=== PATIENT | male | born 1950 | race African-American/Black ===

== ENCOUNTER 2020-07-26 14:38 | Inpatient (IN) | payer MEDICARE, MEDICAID ==
[~2020-07-26 14:38] MED LIST: Acetaminophen 325 MG TAB PO PRN; Ondansetron ODT 4 MG TAB SL PRN; Ondansetron PF 4 MG/2 ML Vial IVP PRN
[2020-07-26 17:02] VITALS: BMI 25.7
[2020-07-26] MEDS ORDERED: hydrALAZINE 20 MG/ML VIAL SLOW IVP PRN (18:18)
[2020-07-26] MEDS ORDERED: Albuterol Sulfate 1.25 MG/3 ML NEB NEB PRN (18:51)
[2020-07-26] MEDS ORDERED: Albuterol 200 PUFF (6.7GM INHALER) INH PRN (19:19)
[2020-07-26 19:27] LABS: Troponin I 0.217 ng/mL (< 0.028)
--- NOTE | 2020-07-26 20:11 | HP ---
CHIEF COMPLAINT: Chest pain. HISTORY OF PRESENT ILLNESS: The patient is a 69-year-old male with a past medical history of substance abuse, who comes into the ER today with complaints of chest pain. He denies any fevers or chills. He denies any shortness of breath. The patient was very uncooperative, stated that he wanted to go smoking. When I told him that I needed to get a history from him, he stated that he will not give me any history and he does not have any chest pain currently. The patient states that he does not take any medications either. The patient was very uncooperative, was not able to get any history from this patient. REVIEW OF SYSTEMS: All negative except for the ones mentioned in the HPI. PAST MEDICAL HISTORY: History of hypertension, he has a history for pneumonia and hypertension, tobacco abuse. PAST SURGICAL HISTORY: He has had broken ribs approximately 20 years ago. ALLERGIES: HE HAS NO KNOWN DRUG ALLERGIES. MEDICATIONS: He takes none. FAMILY HISTORY: Per previous chart reviews, diabetes type 2. SOCIAL HISTORY: He continues to smoke a pack a day. Drinks alcohol socially, however, unable to tell me. He uses crack cocaine on the weekends. His drug test, however, was negative. REVIEW OF SYSTEMS: As I mentioned, all negative except for the ones mentioned above in the HPI. PHYSICAL EXAMINATION: VITAL SIGNS: As of the following; temperature of 98.1, heart rate 51, respiratory rate 16, 98% on room air, blood pressure 150/116. GENERAL: He is awake, alert, sitting up in bed, eating dinner. Does not appear in distress. CARDIOVASCULAR: S1, S2 present. No murmurs, rubs, or gallops. LUNGS: Clear to auscultation. No rhonchi or wheezes noted. ABDOMEN: Soft and nontender. Bowel sounds are present x2. EXTREMITIES: No edema. Pedal pulses are present x2. NEUROVASCULAR: No focal deficits noted. SKIN: No cuts, lesions, or bruises noted. LABORATORY RESULTS: WBCs of 9.0, hemoglobin 15.3, hematocrit of 44.8, his platelets are 253. Chemistries; sodium 146, potassium 4.0, BUN of 26, creatinine 1.56. His AST is 46. His troponin x1 was 0.211, second one was 0.200. BNP was 336. He did have a CTA in ER, which indicated emphysema. No abnormalities. No PE. Centrilobar emphysema. He also had diffuse dilation of the pancreatic duct. ASSESSMENT AND PLAN: The patient is a 69-year-old male, who presents to the hospital with complaints of chest pain. However, currently he is chest pain free. 1. Chest pain. The patient again is unable to really tell me if it is sharp or it is pressure-like or crushing like. He is very very noncooperative. He is very angry. He states that he wants to go smoke and I told him that he cannot go out and smoke. We will trend his troponins. We will start aspirin and statin since he is not on any medications. We will get a stress test in the morning. His EKG does indicate some T-wave abnormalities in his anterior leads. He does have significant risk factors. 2. Acute kidney injury. We will recheck his creatinine in the morning. Hold all nephrotoxins. 3. Mildly elevated hypernatremia. We will continue to monitor. 4. Deep venous thrombosis prophylaxis. We will put patient on SCDs. 5. Smoking session. I did recommend a patch, the patient refused. He states he wants to go down and smoke. We will also check a lipid panel in the morning. Job ID: [id number]
[2020-07-26] MEDS: Atorvastatin Calcium 40 MG TAB PO SCH (20:34)
[2020-07-26 22:53] LABS: Troponin I 0.195 ng/mL (< 0.028)
[2020-07-27 05:25] LABS: #Basophils 0.1 thou/uL (0.0-0.2); #Eosinphils 0.4 thou/uL (0.0-0.7); #Lymphocytes 2.7 thou/uL (1.20-3.40); #Monocytes 0.5 thou/uL (0.11-0.59); #Neutrophils 2.5 thou/uL (1.40-6.50); %Basophils 1.4 % (0.0-1.0); %Eosinophils 6.4 % (0.0-10.0); %Lymphocytes 44.5 % (21.0-51.0); %Monocytes 7.9 % (0.0-10.0); %Neutrophils 39.7 % (42.0-75.0); Hemoglobin 13.2 g/dL (14.0-18.0); Mean Corpuscular Hemoglobin 30.4 pg (27.0-31.0); Mean Corpuscular Volume 86.9 fL (78.0-98.0); Mean Platelet Volume 7.1 fL (7.4-10.4); Platelet Count 228 thou/uL (130-400); RBC Distribution Width 12.5 % (11.5-14.5); Red Blood Cell (RBC) Count 4.34 mill/uL (4.70-6.10); White Blood Cell (WBC) Count 6.2 thou/uL (4.8-10.8)
[2020-07-27 05:41] LABS: Anion Gap 11 mmol/L (10-20); BUN (Urea Nitrogen) 22 mg/dL (8.4-25.7); Calc. Creatinine Clearance 47 mL/min (70-130); Calcium 8.2 mg/dL (7.8-10.44); Carbon Dioxide 27 mmol/L (23-31); Cardiac Risk 2.9 (Less than 4.5); Chloride 107 mmol/L (98-107); Cholesterol 123 mg/dl (< 200 Desired); Glucose 81 mg/dL (80-115); HDL Cholesterol 42 mg/dL (>60 Neg Risk); LDL Cholesterol, Calculated 68 mg/dL; Potassium 3.6 mmol/L (3.5-5.1); Sodium 141 mmol/L (136-145); Triglycerides 63 mg/dL (Less than 150)
[2020-07-27 05:46] LABS: Troponin I 0.181 ng/mL (< 0.028)
--- NOTE | 2020-07-27 08:21 | ULT ---
Exam: Right upper quadrant ultrasound: HISTORY: Abdominal pain. COMPARISON: CT abdomen on 07/21/2014 and CTA chest on 07/26/2020 FINDINGS: Liver: Within normal limits Gallbladder: Incompletely distended. No gallbladder calculus is seen, and there is no gallbladder wal l thickening or pericholecystic fluid. Bulk Station Agent does note a negative sonographic Abebe's sign. Common bile duct: The common duct is normal in caliber measuring 0.5 cm in diameter. Pancreas: Mostly obscured, but where visualized does demonstrate a normal sonographic appearance. The pancreatic duct is mildly dilated measuring 3 mm in diameter. However, this is a stable finding in back to study in 2013 is well as recent CTA chest on 07/26/2020. Right kidney: Right kidney demonstrates a normal sonographic appearance. The right kidney measures 9 .3 cm in length. IVC: The visualized IVC demonstrates a normal sonographic appearance. IMPRESSION: 1. Gallbladder is incompletely distended, but no gallbladder calculus is seen, and there is no perich olecystic fluid or gallbladder wall thickening. 2. Common duct is normal in caliber measuring 0.5 cm in diameter. 3. Dilatation of the pancreatic duct, but this is a stable finding dating back to a study in 2013.
[2020-07-27] MEDS ORDERED: Enoxaparin Sodium 40 MG/0.4 ML SYRINGE SC SCH (09:00)
[2020-07-27] MEDS: Amlodipine 10 MG TAB PO SCH (10:01)
[2020-07-27] MEDS: Aspirin 325 mg Enteric Coated Tablet PO SCH (10:02)
[2020-07-27] MEDS ORDERED: Iopamidol 370 76% 100 ML VIAL ONE (11:22)
--- NOTE | 2020-07-27 13:44 | PDOC.HOSPP ---
- Subjective Encounter Date: 07/27/20 Encounter Time: 01:10 Subjective: Patient was not able to get the stress test today as his heart rate varied in the 30s. - Objective Vital Signs & Weight: Vital Signs (12 hours) Temp Pulse Resp BP Pulse Ox 07/27/20 11:03 98.2 F 54 L 18 165/104 H 97 07/27/20 07:10 98.4 F 45 L 16 146/89 H 95 07/27/20 04:00 97.7 F 55 L 16 149/88 H 95 Weight Weight 119 lb 3.2 oz Result Diagrams: 07/27/20 05:11 07/27/20 05:11 Hospitalist ROS - Medication Medications: Active Medications Generic Name Dose Route Start Last Admin Trade Name Freq PRN Reason Stop Dose Admin Amlodipine Besylate 10 mg 07/27/20 09:00 07/27/20 10:01 Amlodipine 10 Mg Tab PO 10 mg DAILY FAROOQ Administration Aspirin 325 mg 07/27/20 09:00 07/27/20 10:02 Aspirin 325 Mg Enteric Coated Tablet PO 325 mg DAILY FAROOQ Administration Atorvastatin Calcium 40 mg 07/26/20 21:00 07/26/20 20:34 Atorvastatin Calcium 40 Mg Tab PO 40 mg HS FAROOQ Administration Enoxaparin Sodium 40 mg 07/27/20 09:00 07/27/20 10:02 Enoxaparin Sodium 40 Mg/0.4 Ml Syringe SC 40 mg 0900 FAROOQ Administration Sodium Chloride 10 ml 07/26/20 13:30 07/26/20 20:35 Flush - Normal Saline 10 Ml Syringe IVF 10 ml PRN PRN Administration Saline Flush - Exam General Appearance: NAD, awake alert Eye: PERRL ENT: normocephalic atraumatic Neck: supple, no thyromegaly Heart: RRR Respiratory: CTAB, normal chest expansion Gastrointestinal: soft, normal bowel sounds Neurological: cranial nerve grossly intact, no focal deficits Hosp A/P - Plan Chest pain Elevated troponin and abnormal EKG specifically T inversions. --Stress test has been canceled due to bradycardia. -Is not on any blockers. -He is not in any home medications History of polysubstance abuse Noncompliance Due to bradycardia we did not pursue the stress test. Dr. Guzmán will likely see him this afternoon. We will follow the recommendations. Meanwhile check the lipid panel and start him on a low-dose aspirin and a statin. Hypertension -Patient is not on any home medications will avoid the blockers for now. Starting him on a low-dose Norvasc. Full code
[2020-07-27] MEDS ORDERED: Communication Order-Pharmacy FS SCH (14:30)
[2020-07-27] MEDS ORDERED: Nitroglycerin 100MG/250ML BOT 250 ML ONE (14:44)
[2020-07-27] MEDS ORDERED: Heparin 10,000 UNITS/ 10 ML VIAL ONE (14:45)
[2020-07-27] MEDS ORDERED: Verapamil 5 MG/2 ML VIAL ONE (14:45)
[2020-07-27] MEDS ORDERED: Midazolam HCl 2 mg/2 ml Vial ONE ×2 (14:46→15:10)
[2020-07-27] MEDS ORDERED: Fentanyl 100 MCG/2 ML VIAL ONE (14:46)
[2020-07-27] MEDS ORDERED: Atropine Sulfate 1 mg/1 ml Vial ONE (14:56)
[2020-07-27] MEDS ORDERED: Atropine Sulfate 1 mg/10 ml Syringe ONE (14:56)
--- NOTE | 2020-07-27 15:25 | CON ---
DATE OF CONSULTATION: 07/27/2020 INDICATION FOR CONSULTATION: A 69-year-old patient who was admitted after he complained of chest pain. HISTORY OF PRESENT ILLNESS: This is a very unfortunate 69-year-old gentleman, who came to the emergency room. He said he was walking at night, was going to his friend's house to have dinner. He suddenly developed chest pain, and the next thing he knew he said he passed out and was in the ditch. He then got up. Apparently, his friend found him, and then eventually, he was taken to the emergency room. Since that time, he has had some bradycardia. He denied any further chest pain. I asked him to describe the chest pain. He said it was very sharp like stabbing type pains in his chest. He has not had these symptoms before, and he has not had any chest pain significantly since that time. He does have risk factors for coronary artery disease, which include hypertension. He also has a long history of tobacco abuse. He smoked a pack a day for about 50 years. He did use crack cocaine in the past, but he says he has not used any crack cocaine in the last 2 to 3 years, and his drug test has been negative. At this time, we did attempt to do a stress test on the patient due to the bradycardia. The stress test was aborted. He did have a stress test back in 2013, which did not show ischemia. At that time, he did have EKG changes also. He continued to have EKG changes on his telemetry as well as his EKG with some significant T-wave inversions. Given his history of hypertension, tobacco abuse, chest pain, syncope, bradycardia, and inability to take a stress test, I have advised him to proceed with cardiac catheterization as a definitive tool to rule out evidence for underlying coronary artery disease as a possible etiology of the chest pain as well as possible etiology of the syncope. He may have a right coronary artery stenosis causing problems with arrhythmias or bradycardia as well as his chest discomfort. His EKG changes were noted in V2 and V3 in the past. At this time, he does have some nonspecific T- wave changes, and he has T-wave inversions in I, aVL, lead II with flattening of the T-waves in III and aVF and T-wave inversions in V2 through V6. PAST MEDICAL HISTORY: Significant for hypertension. He has a history of pneumonia. He has history of fractured ribs after a horse fell on him. ALLERGIES: NONE. MEDICATIONS: Prior to admission were none. FAMILY HISTORY: Noncontributory, but there is some history of diabetes. SOCIAL HISTORY: He smokes tobacco. He stopped using crack cocaine about 2 or 3 years ago. He denies any alcohol use. REVIEW OF SYSTEMS: Essentially, the 12-point review of systems unremarkable except what is noted in the history of present illness. PHYSICAL EXAMINATION: GENERAL: Reveals a middle-aged male. VITAL SIGNS: Blood pressure is 165/104. He is afebrile. Heart rate 54, O2 saturation 97%, and respiratory rate is 18. HEENT: Shows the head to be normocephalic and atraumatic. Carotid pulses are present. I did not hear any bruits. CHEST: Clear to auscultation without rales, rhonchi, or wheezing. CARDIOVASCULAR: Reveals a regular rhythm at this time, slightly bradycardic. There were no gross murmurs noted. There were no bruits, no heaves, no thrills. ABDOMEN: Flat, soft, nontender. Positive bowel sounds are present. EXTREMITIES: Show no clubbing, cyanosis, or edema. Pedal pulses are difficult to palpate, but are present. NEUROLOGICAL: He appears to be intact without any significant gross focal motor deficits at all. SKIN: Warm and dry. LABORATORY DATA: Show a WBC of 6.2, hemoglobin 13.2, platelet count was 228,000. His sodium is 141, potassium 3.6, BUN was 22, and creatinine 1.16. Blood sugar was 81. Troponin I on admission was 0.217, it has now decreased down to 0.18. IMPRESSION: 1. A 69-year-old patient with chest pain, bradycardia, and syncope. He will be advised to undergo cardiac catheterization as a definitive tool to rule out evidence for underlying coronary artery disease, mainly because of the atypical symptoms and the inability to perform stress testing due to the severe bradycardia. 2. Bradycardia. He may have underlying coronary artery disease as an etiology. Otherwise, if he continues to have significant bradycardia that becomes symptomatic, then he will need to undergo pacemaker insertion. It is unclear whether or not he passed out due to bradycardia or some other etiology. If he did, he may need to have some type of event monitor, perhaps an implantable loop recorder prior to being discharged depending on the results of the cardiac catheterization. 3. Hypertension. I will need to readjust his medications to lower the blood pressure. He is obviously not a candidate for beta blockers, but is a candidate for NEAL inhibitor as well as nitrates, and this again will be dealt with after the cardiac catheterization once we know his coronary anatomy. 4. History of tobacco abuse. The patient should get some assistance or help to stop smoking. I did tell him he needs to stop smoking entirely, but he is unwilling to do so, saying that he has smoked all of his life and he needs that just to continue on a daily basis. I did explain the cardiac catheterization, the procedure, the risks to him to include bleeding, infection, possible myocardial infarction, CVA, renal insufficiency, allergic contrast reaction, and even the possibility of . He understands and agrees to proceed. We will plan for cardiac catheterization later today. Job ID: [id number] MTDD
[2020-07-27] MEDS ORDERED: Sodium Chloride 0.9% 200 ML IV PRN (16:08)
[2020-07-27] MEDS ORDERED: Acetaminophen/Codeine 30-300mg Tablet PO PRN ×2 (16:08)
[2020-07-27] MEDS ORDERED: Nitroglycerin 0.4 MG TAB (25 Tab Bottle) SL PRN (16:08)
[2020-07-27] MEDS: Atorvastatin Calcium 40 MG TAB PO SCH (21:36)
[2020-07-28 05:38] LABS: Cardiac Risk 2.7 (Less than 4.5)
[2020-07-28] MEDS: Amlodipine 10 MG TAB PO SCH (08:41)
[2020-07-28] MEDS: Aspirin 325 mg Enteric Coated Tablet PO SCH (08:41)
--- NOTE | 2020-07-28 12:30 | PDOC.HOSPP ---
- Subjective Encounter Date: 07/28/20 Encounter Time: 08:50 Subjective: Patient feels that he has some mild chest pain but nothing like in the past. He wants to have some sweet to eat. - Objective Vital Signs & Weight: Vital Signs (12 hours) Temp Pulse Resp BP BP Pulse Ox 07/28/20 11:38 97.4 F L 60 18 147/88 H 96 07/28/20 07:20 98.1 F 50 L 16 164/101 H 94 L 07/28/20 04:00 98.3 F 54 L 20 178/90 H 99 Weight Weight 119 lb 3.2 oz I&O: 07/27/20 07/28/20 07/29/20 06:59 06:59 06:59 Intake Total 215 238 Balance 215 238 Result Diagrams: 07/27/20 05:11 07/27/20 05:11 Hospitalist ROS - Medication Medications: Active Medications Generic Name Dose Route Start Last Admin Trade Name Freq PRN Reason Stop Dose Admin Amlodipine Besylate 10 mg 07/27/20 09:00 07/28/20 08:41 Amlodipine 10 Mg Tab PO 10 mg DAILY FAROOQ Administration Aspirin 325 mg 07/27/20 09:00 07/28/20 08:41 Aspirin 325 Mg Enteric Coated Tablet PO 325 mg DAILY FAROOQ Administration Atorvastatin Calcium 40 mg 07/26/20 21:00 07/27/20 21:36 Atorvastatin Calcium 40 Mg Tab PO 40 mg HS FAROOQ Administration Sodium Chloride 10 ml 07/26/20 13:30 07/26/20 20:35 Flush - Normal Saline 10 Ml Syringe IVF 10 ml PRN PRN Administration Saline Flush - Exam General Appearance: NAD, awake alert Eye: PERRL ENT: normocephalic atraumatic Neck: supple Heart: RRR Respiratory: CTAB, normal chest expansion Gastrointestinal: soft, normal bowel sounds Extremities: 1+ LE edema Neurological: no focal deficits Psychiatric: A&O x 3 Hosp A/P - Plan Chest pain Elevated troponin and abnormal EKG specifically T inversions. --Stress test has been canceled due to bradycardia. -Is not on any blockers. -He is not in any home medications History of polysubstance abuse Noncompliance Due to bradycardia we did not pursue the stress test. Dr. Guzmán will likely see him this afternoon. We will follow the recommendations. Meanwhile check the lipid panel and start him on a low-dose aspirin and a statin. Hypertension -Patient is not on any home medications will avoid the blockers for now. S tarting him on a low-dose Norvasc. Full code Status post cath EF of 80% 80% stenosis in the first diagonal and 90% stenosis in the second diagonal. Left main no stenosis. RCA has no stenosis Since he has bradycardia and symptomatic that needs to be addressed, may need a pacemaker. Will leave that to the discretion of Dr. Guzmán. Her LDL is 60 and his TSH is in the normal range. Discharge plan --already echo work-up in progress occluding pacemaker evaluation.
[2020-07-28] MEDS: Atorvastatin Calcium 40 MG TAB PO SCH (20:54)
[2020-07-29] MEDS: Aspirin 325 mg Enteric Coated Tablet PO SCH (08:50)
[2020-07-29] MEDS: Amlodipine 10 MG TAB PO SCH (08:50)
--- NOTE | 2020-07-29 13:01 | PDOC.HOSPP ---
- Subjective Encounter Date: 07/29/20 Encounter Time: 09:28 Subjective: Patient is resting. Talk to the RN. telemetry monitoring shows bradycardic currently; also overnight he was bradycardia with the pulse in the 50s. - Objective Vital Signs & Weight: Vital Signs (12 hours) Temp Pulse Resp BP Pulse Ox 07/29/20 11:58 98.5 F 63 18 142/76 H 100 07/29/20 07:46 97.7 F 62 16 163/103 H 95 07/29/20 04:00 98.2 F 58 L 15 167/88 H 96 07/29/20 03:38 95 Weight Weight 119 lb 3.2 oz I&O: 07/28/20 07/29/20 07/30/20 06:59 06:59 06:59 Intake Total 215 1186 397 Balance 215 1186 397 Result Diagrams: 07/27/20 05:11 07/27/20 05:11 Hospitalist ROS - Medication Medications: Active Medications Generic Name Dose Route Start Last Admin Trade Name Freq PRN Reason Stop Dose Admin Acetaminophen/Codeine Phosphate 2 tab 07/27/20 16:08 07/28/20 20:54 Acetaminophen/Codeine 30-300mg Tablet PO 2 tab Q4H PRN Administration Moderate Pain (4-6) Amlodipine Besylate 10 mg 07/27/20 09:00 07/29/20 08:50 Amlodipine 10 Mg Tab PO 10 mg DAILY FAROOQ Administration Aspirin 325 mg 07/27/20 09:00 07/29/20 08:50 Aspirin 325 Mg Enteric Coated Tablet PO 325 mg DAILY FAROOQ Administration Atorvastatin Calcium 40 mg 07/26/20 21:00 07/28/20 20:54 Atorvastatin Calcium 40 Mg Tab PO 40 mg HS FAROOQ Administration Sodium Chloride 10 ml 07/26/20 13:30 07/26/20 20:35 Flush - Normal Saline 10 Ml Syringe IVF 10 ml PRN PRN Administration Saline Flush - Exam General Appearance: NAD, awake alert Eye: PERRL ENT: normocephalic atraumatic Neck: supple Heart: RRR, normal peripheral pulses Respiratory: CTAB, normal chest expansion Gastrointestinal: soft, normal bowel sounds Neurological: cranial nerve grossly intact, no focal deficits Hosp A/P - Plan Chest pain Elevated troponin and abnormal EKG specifically T inversions. --Stress test has been canceled due to bradycardia. -Is not on any blockers. -He is not in any home medications History of polysubstance abuse Noncompliance Due to bradycardia we did not pursue the stress test. Dr. Guzmán will likely see him this afternoon. We will follow the recommendations. Meanwhile check the lipid panel and start him on a low-dose aspirin and a statin. Hypertension -Patient is not on any home medications will avoid the blockers for now. S tarting him on a low-dose Norvasc. Full code Status post cath EF of 80% 80% stenosis in the first diagonal and 90% stenosis in the second diagonal. Left main no stenosis. RCA has no stenosis Since he has bradycardia and symptomatic that needs to be addressed, may need a pacemaker. Will leave that to the discretion of Dr. Guzmán. Her LDL is 60 and his TSH is in the normal range. Sinus bradycardia - telemetry monitoring shows bradycardic currently; also overnight he was bradycardia with the pulse in the 50s. -Patient is not on any ashley. He would benefit with low-dose beta-ashley giv en mild CAD, however with the bradycardia, will refrain from adding it. he may benefit with having a pacemaker placement. Need to be addressed prior to being discharged. Physical therapy treatment ongoing.
[2020-07-29] MEDS: Atorvastatin Calcium 40 MG TAB PO SCH (22:21)
[2020-07-30] MEDS: Aspirin 325 mg Enteric Coated Tablet PO SCH (08:26)
[2020-07-30] MEDS: Amlodipine 10 MG TAB PO SCH (08:26)
[2020-07-30 08:41] VITALS: BP 199/102; TEMP 96.9
[2020-07-30] MEDS ORDERED: Clopidogrel Bisulfate 300 MG TAB PO SCH (09:00)
--- NOTE | 2020-07-30 09:10 | PRG ---
DATE OF SERVICE: 07/30/2020 SUBJECTIVE: Mr. Brewster is anxious to be discharged home. He is not having chest pain or pressure. OBJECTIVE: VITAL SIGNS: His blood pressure was recently high 190/102, he has not yet received his amlodipine, earlier 148/90. Pulse 50 at night and heart rate goes in the mid 40s. LUNGS: Some rhonchi. CARDIAC: Normal S1, normal S2. He is bradycardic. ASSESSMENT: 1. Status post ixs-GH-[id number] elevation myocardial infarction. 2. Syncopal episode. 3. Sinus bradycardia. 4. Coronary artery disease, best treated medically. 5. Hypercholesterolemia. 6. Hypertension. PLAN: 1. He is on amlodipine 10 mg a day. 2. Aspirin 325 mg a day. 3. We would recommend loading with Plavix 300 mg now, then 75 mg a day. 4. Dr. Guzmán indicates that any other syncopal episodes, pacemaker insertion will be appropriate. She did not recommend pacemaker insertion at this time. The patient should follow up with Dr. Guzmán as an outpatient. I think he has been instructed it is important to quit smoking. Job ID: [id number]
[2020-07-31] MEDS ORDERED: Clopidogrel Bisulfate 75 MG TAB PO SCH (09:00)
--- NOTE | 2020-08-01 04:32 | PQF ---
CLINICAL DOCUMENTATION CLARIFICATION FORM: Dear : Tia Giles Date / Time: 08/01/20 Please exercise your independent, professional judgment in responding to the clarification form. Clinical indicators are provided on the bottom of this form for your review Is Chest Pain associated with: Please check appropriate box(es): [ ] CAD [ ] JARET [ ] NSTEMI Please specify type: [ ] NSTEMI type 1 [ ] NSTEMI type 2 (please specify known cause) [ ] Hypernatremia [ ] Other diagnosis, please specify [ ] Unable to determine Physician Signature: Date/Time: For continuity of documentation, please document condition throughout progress notes and discharge summary. Thank You. To be completed by CDI/Coding staff for physician review: Present Clinical Indicators - Signs / Symptoms / Labs Results and Location in Medical Record [x] Chest pain PN 07/29 [x] Status post non ST segment elevation ND DS 07/30 [x] elevated troponin and abnormal EKG specifically T inversion PN 07/29 [x] BUN=22 Creatinine=1.16 GFR=76 Laboratory 07/27 [x] Troponin: 07/26=0.217 07/27=0.181 Laboratory 07/26 [x] Qboddr=301 Laboratory 07/27 Present Risk Factors Results and Location in Medical Record [x] CAD DS 07/30 [x] Hypercholesterolemia DS 07/30 [x] HTN DS 07/30 [x] Smoker Consult 07/27 [x] 69 years old male HP 07/26 [x] JARET HP 07/26 [x] Hypernatremia HP 07/26 Present Treatments Results and Location in Medical Record [x] [facility] microbiology lab analyst 07/27 [x] Cardiology Consult Consult 07/27 [x] Aspirin 325mg Oral MAR 07/27 [x] Lovenox 40mg subcu MAR 07/27 [x] Heparin 1000units IV MAR 07/27 [x] Plavix 300mg Oral SEP 26 CDS/Replenishment Analyst Signature: Song Aiken Phone #: [phone] Date/Time: 08/01/20 This is a permanent part of the Medical Record [facility]
--- NOTE | 2020-08-07 16:09 | PDOC.DS.DS ---
Provider - Provider Date of Admission: 07/27/20 14:57 Date of Discharge: 07/30/20 Admitting Provider: Edna De Dios MD Consultations: Cardiology Primary Care Physician: Jin Lopez Course - Hospital Course Hospital Course: This patient is a 69-year-old male with a history of tobacco abuse, who presented to the emergency department after being found by his friends. Patient apparently was found in a ditch. Patient reports he had chest pain and subsequently a syncopal event. In the emergency department his troponin was 0.2 and BNP was [address] he had a [address] angiogram of the chest which showed emphysema but no PE. He was noted to have some baseline bradycardia. He was seen in consultation by cardiology. His troponins subtly trended downward. He subsequently underwent a cardiac cath which revealed an EF of 80% with 80% stenosis of a diagonal branch and 30% of a OM1 proximally and distally. This felt this should be managed medically. Following day the patient was extraordinarily eager for discharge. He was seen in follow-up by cardiology recommended aspirin and a Plavix load followed by daily Plavix therapy. The recommendation was to continue to follow patient as an outpatient should he have any further syncopal events he may consider a pacemaker due to his underlying bradycardic rhythm. Case was reviewed with cardiology and he was cleared for discharge to home. Resuscitation Status: 07/26/20 18:16 Resuscitation Status Routine Resuscitation Status: FULL: Full Resuscitation - Labs Lab Results: 07/27/20 05:11 07/27/20 05:11 - Physical Exam Vitals: Weight Weight 119 lb 3.2 oz Physical Exam: The patient was seen and examined on the day of discharge. Problem - Problem (1) Syncope Code(s): R55 - SYNCOPE AND COLLAPSE Status: Acute (2) Bradycardia Code(s): R00.1 - BRADYCARDIA, UNSPECIFIED Status: Acute (3) Chest pain Code(s): R07.9 - CHEST PAIN, UNSPECIFIED Status: Acute (4) NSTEMI (non-ST elevated myocardial infarction) Code(s): I21.4 - NON-ST ELEVATION (NSTEMI) MYOCARDIAL INFARCTION Status: Acute (5) Hyperlipidemia Code(s): E78.5 - HYPERLIPIDEMIA, UNSPECIFIED Status: Acute (6) Coronary artery disease Code(s): I25.10 - ATHSCL HEART DISEASE OF [place] CORONARY ARTERY W/O ANG PCTRS Status: Acute (7) Cocaine abuse Code(s): F14.10 - COCAINE ABUSE, UNCOMPLICATED Status: Acute (8) Hypertension Code(s): I10 - ESSENTIAL (PRIMARY) HYPERTENSION Status: Acute (9) Tobacco abuse Code(s): Z72.0 - TOBACCO USE Status: Acute - Time spent with Patient (mins): 35 Plan - Discharge Medications Prescriptions: Nitroglycerin [Nitrostat] 0.4 mg SL Q5MIN PRN #30 tab PRN Reason: Chest Pain Atorvastatin Calcium [Lipitor] 40 mg PO HS #30 tab Amlodipine [Norvasc] 10 mg PO DAILY #30 tab Clopidogrel Bisulfate [Plavix] 75 mg PO DAILY #30 tab Albuterol Sulfate [Proventil Hfa] 1 puff INH [id number] PRN #1 aer PRN Reason: Wheezing Home Medications: Medication Instructions Recorded Confirmed Type Albuterol Sulfate [Proventil Hfa] 1 puff INH [id number] PRN #1 aer 07/30/20 Rx Amlodipine [Norvasc] 10 mg PO DAILY #30 tab 07/30/20 Rx Atorvastatin Calcium [Lipitor] 40 mg PO HS #30 tab 07/30/20 Rx Clopidogrel Bisulfate [Plavix] 75 mg PO DAILY #30 tab 07/30/20 Rx Nitroglycerin [Nitrostat] 0.4 mg SL Q5MIN PRN #30 tab 07/30/20 Rx Allergies: No Known Drug Allergies Allergy (Verified 07/26/20 17:06) - Discharge Instructions Activity:: Activity as Tolerated Nourishment:: Heart Healthy Diet - Follow up Plan Referrals: Darius Mullen MD [Primary Care Provider] - 7 Days Disposition: HOME Quality - Care Measures CORE MEASURES:: AMI
--- NOTE | 2020-08-07 18:25 | PQF ---
CLINICAL DOCUMENTATION CLARIFICATION FORM: Dear : Tia Giles Date / Time:08/07/20 18:25 Please exercise your independent, professional judgment in responding to the clarification form. Clinical indicators are provided on the bottom of this form for your review Please check appropriate box(es): AMI TYPE: [ ] Type 1 MS (NSTEMI) [ ] Type 2 MS (T2MI) secondary to, please specify: [ ] History of MS only [ ] Other diagnosis, please specify [ ] Unable to determine Physician Signature: Date/Time: For continuity of documentation, please document condition throughout progress notes and discharge summary. Thank You. To be completed by CDI/Coding staff for physician review: Present Clinical Indicators - Signs / Symptoms / Labs Results and Location in Medical Record [x] Chest pain PN 07/29 [x] Status post non ST segment elevation MS DS 07/30 [x] elevated troponin and abnormal EKG specifically T inversion PN 07/29 [x] Troponin: 07/26=0.217 07/27=0.181 Laboratory 07/26 Present Risk Factors Results and Location in Medical Record [x] CAD DS 07/30 [x] Hypercholesterolemia DS 07/30 [x] HTN DS 07/30 [x] Smoker Consult 07/27 [x] 69 years old male HP 07/26 [x] JARET HP 07/26 [x] Hypernatremia HP 07/26 Present Treatments Results and Location in Medical Record [x] C medical lab assistant 07/27 [x] Cardiology Consult Consult 07/27 [x] Aspirin 325mg Oral OCT 07 [x] Lovenox 40mg subcu OCT 07 [x] Heparin 1000units IV OCT 07 [x] Plavix 300mg Oral SEP 26 [facility]S/[employer] Signature:Song Aiken Phone #: [phone] Date/Time:08/07/20 This is a permanent part of the Medical Record [facility]
== END 2020-07-30 09:34 | disposition home or self-care (01) | DRG 287 ==
LOC: 2SE 16:33 → INTOOBSV 16:33 → OBSVTOIN 07-27 14:57
PROVIDERS: ADMIT Internal Medicine; ATTEND Internal Medicine
PROC: 4A023N7 Measurement of Cardiac Sampling and Pressure, Left Heart, Percutaneous Approach (ICD-10-PCS; principal; 2020-07-27)
PROC: B2111ZZ Fluoroscopy of Multiple Coronary Arteries using Low Osmolar Contrast (ICD-10-PCS; 2020-07-27)
DX: R07.9 Chest pain, unspecified (principal); N17.9 Acute kidney failure, unspecified; E87.0 Hyperosmolality and hypernatremia; I10 Essential (primary) hypertension; F17.200 Nicotine dependence, unspecified, uncomplicated; R00.1 Bradycardia, unspecified; I25.10 Atherosclerotic heart disease of native coronary artery without angina pectoris; E78.00 Pure hypercholesterolemia, unspecified; Z87.01 Personal history of pneumonia (recurrent); Z91.19 Patient's noncompliance with other medical treatment and regimen
CPT/HCPCS: 36415; 76705; 80048; 80061; 84443; 84484; 85025; 93458; 94760; 96372; 99152; G0378; J0461; J1644; J1650; J2250; J3010; Q9967

== ENCOUNTER 2020-11-23 23:16 | Inpatient (IN) | payer MEDICARE, MEDICAID ==
[2020-11-24 00:44] LABS: Prothrombin Time 12.9 sec (12.0-14.7)
[2020-11-24 00:49] LABS: PTT 162.1 sec (22.9-36.1)
[2020-11-24 01:21] LABS: Troponin I 0.184 ng/mL (< 0.028)
[2020-11-24 05:04] LABS: SARS-CoV-2 PCR by NAA Not Detected (NotDetected)
[2020-11-24] MEDS ORDERED: Acetaminophen 325 MG TAB PO PRN (08:30)
[2020-11-24] MEDS ORDERED: Ondansetron PF 4 MG/2 ML Vial IVP PRN (08:30)
[2020-11-24] MEDS ORDERED: Calcium Carbonate 500 MG ChewTAB PO PRN (08:30)
[2020-11-24] MEDS ORDERED: HYDROcodone/Acetaminophen 5/325 mg Tablet PO PRN (08:30)
[2020-11-24] MEDS ORDERED: Senokot S 8.6-50 MG TAB PO PRN (08:30)
[2020-11-24] MEDS ORDERED: Carvedilol 3.125 MG TAB PO SCH ×2 (09:00→17:00)
[2020-11-24] MEDS ORDERED: Clopidogrel Bisulfate 75 MG TAB ONE (09:12)
[2020-11-24] MEDS ORDERED: Aspirin Chewable 81 MG TAB ONE (09:12)
[2020-11-24] MEDS: Aspirin Chewable 81 MG TAB PO SCH (09:15)
[2020-11-24] MEDS: Clopidogrel Bisulfate 75 MG TAB PO SCH (09:18)
[2020-11-24] MEDS ORDERED: Heparin 25,000 units/D5W 500 ML IVPB SCH ×2 (12:45→18:30)
[2020-11-24 13:07] LABS: Hemoglobin 14.1 g/dL (14.0-18.0); Platelet Count 275 thou/uL (130-400)
[2020-11-24 13:33] LABS: PTT 154.3 sec (22.9-36.1)
[2020-11-24 13:54] LABS: Amphetamine Not Detected (NotDetected); Barbiturates Screen Not Detected (NotDetected); Benzodiazepine Screen Not Detected (NotDetected); Cocaine Metabolite Screen Detected (NotDetected); Medtox Control Line Valid? VALID (VALID); Medtox Reader # READER 1; Methadone Not Detected (NotDetected); Methamphetamine Not Detected (NotDetected); Opiate Screen Not Detected (NotDetected); Oxycodone Screen Not Detected (NotDetected); Phencyclidine (PCP) Not Detected (NotDetected); THC/Cannabinoid Screen Not Detected (NotDetected); Tricyclic Screen Not Detected (NotDetected)
[2020-11-24 15:05] VITALS: BMI 28.1
[2020-11-24] MEDS: Carvedilol 3.125 MG TAB PO SCH (16:49)
[2020-11-24] MEDS ORDERED: Heparin 10,000 UNITS/ 10 ML VIAL SLOW IVP SCH (18:30)
[2020-11-24] MEDS: Atorvastatin Calcium 40 MG TAB PO SCH (20:36)
[2020-11-25] MEDS: hydrALAZINE 20 MG/ML VIAL SLOW IVP PRN ×3 (03:22→18:22)
[2020-11-25] MEDS ORDERED: Heparin 25,000 units/D5W 500 ML IV SCH (04:30)
[2020-11-25] MEDS ORDERED: Heparin 10,000 UNITS/ 10 ML VIAL SLOW IVP SCH (04:30)
[2020-11-25 04:35] LABS: #Basophils 0.1 thou/uL (0.0-0.2); #Eosinphils 0.5 thou/uL (0.0-0.7); #Lymphocytes 3.7 thou/uL (1.20-3.40); #Monocytes 1.2 thou/uL (0.11-0.59); #Neutrophils 5.9 thou/uL (1.40-6.50); %Basophils 0.8 % (0.0-1.0); %Eosinophils 4.4 % (0.0-10.0); %Lymphocytes 32.3 % (21.0-51.0); %Monocytes 10.2 % (0.0-10.0); %Neutrophils 52.2 % (42.0-75.0); Hemoglobin 14.3 g/dL (14.0-18.0); Mean Corpuscular HGB CONC 35.5 g/dL (32.0-36.0); Mean Corpuscular Hemoglobin 30.8 pg (27.0-31.0); Mean Corpuscular Volume 86.6 fL (78.0-98.0); Mean Platelet Volume 6.8 fL (7.4-10.4); Platelet Count 273 thou/uL (130-400); RBC Distribution Width 13.2 % (11.5-14.5); Red Blood Cell (RBC) Count 4.65 mill/uL (4.70-6.10); White Blood Cell (WBC) Count 11.3 thou/uL (4.8-10.8)
[2020-11-25 04:43] LABS: Hemoglobin A1c 4.9 % (4.0-6.0)
[2020-11-25] MEDS ORDERED: Azithromycin 500 MG in Sodium Chloride 0.9% 250 ML 250 ML IVPB SCH (05:00)
[2020-11-25] MEDS ORDERED: methylPREDNISolone Sod Succ 40 MG VIAL IVP SCH ×2 (05:00→09:00)
[2020-11-25 05:01] LABS: Anion Gap 13 mmol/L (10-20); BUN (Urea Nitrogen) 12 mg/dL (8.4-25.7); Calc. Creatinine Clearance 58 mL/min (70-130); Calcium 9.4 mg/dL (7.8-10.44); Carbon Dioxide 25 mmol/L (23-31); Cardiac Risk 2.5 (Less than 4.5); Chloride 105 mmol/L (98-107); Cholesterol 140 mg/dl (< 200 Desired); Glucose 97 mg/dL (80-115); HDL Cholesterol 57 mg/dL (>60 Neg Risk); LDL Cholesterol, Calculated 65 mg/dL; Potassium 3.7 mmol/L (3.5-5.1); Sodium 139 mmol/L (136-145); Triglycerides 92 mg/dL (Less than 150); Troponin I 0.152 ng/mL (< 0.028)
[2020-11-25] MEDS: Carvedilol 3.125 MG TAB PO SCH ×2 (09:07→17:07)
[2020-11-25] MEDS: Aspirin Chewable 81 MG TAB PO SCH (09:07)
[2020-11-25] MEDS: Clopidogrel Bisulfate 75 MG TAB PO SCH (09:07)
[2020-11-25] MEDS: Nicotine 21 MG PATCH TD SCH (09:07)
[2020-11-25] MEDS: Doxycycline 100 MG CAP PO SCH (20:30)
[2020-11-25] MEDS: Atorvastatin Calcium 40 MG TAB PO SCH (20:30)
[2020-11-26 04:53] LABS: #Eosinphils 0.1 thou/uL (0.0-0.7); #Lymphocytes 3.3 thou/uL (1.20-3.40); #Monocytes 1.1 thou/uL (0.11-0.59); #Neutrophils 5.6 thou/uL (1.40-6.50); %Basophils 0.4 % (0.0-1.0); %Eosinophils 1.3 % (0.0-10.0); %Lymphocytes 32.6 % (21.0-51.0); %Monocytes 10.5 % (0.0-10.0); %Neutrophils 55.2 % (42.0-75.0); Hemoglobin 13.3 g/dL (14.0-18.0); Mean Corpuscular HGB CONC 34.3 g/dL (32.0-36.0); Mean Corpuscular Hemoglobin 29.9 pg (27.0-31.0); Mean Corpuscular Volume 86.9 fL (78.0-98.0); Mean Platelet Volume 6.9 fL (7.4-10.4); Platelet Count 284 thou/uL (130-400); Red Blood Cell (RBC) Count 4.45 mill/uL (4.70-6.10); White Blood Cell (WBC) Count 10.1 thou/uL (4.8-10.8)
[2020-11-26 05:09] LABS: Anion Gap 12 mmol/L (10-20); BUN (Urea Nitrogen) 13 mg/dL (8.4-25.7); Calc. Creatinine Clearance 61 mL/min (70-130); Calcium 9.3 mg/dL (7.8-10.44); Carbon Dioxide 25 mmol/L (23-31); Chloride 108 mmol/L (98-107); Glucose 103 mg/dL (80-115); Magnesium 2.1 mg/dL (1.6-2.6); Potassium 3.5 mmol/L (3.5-5.1); Sodium 141 mmol/L (136-145)
[2020-11-26] MEDS: Aspirin Chewable 81 MG TAB PO SCH (08:27)
[2020-11-26] MEDS: predniSONE 20 MG TAB PO SCH (08:27)
[2020-11-26] MEDS: Clopidogrel Bisulfate 75 MG TAB PO SCH (08:27)
[2020-11-26] MEDS: Doxycycline 100 MG CAP PO SCH ×2 (08:27→20:48)
[2020-11-26] MEDS: Carvedilol 3.125 MG TAB PO SCH (08:27)
[2020-11-26] MEDS: Nicotine 21 MG PATCH TD SCH (08:28)
[2020-11-26] MEDS: Amlodipine 10 MG TAB PO SCH (10:24)
[2020-11-26] MEDS: hydrALAZINE 20 MG/ML VIAL SLOW IVP PRN (15:26)
[2020-11-26] MEDS: Atorvastatin Calcium 40 MG TAB PO SCH (20:48)
[2020-11-27] MEDS: Doxycycline 100 MG CAP PO SCH (08:37)
[2020-11-27] MEDS: Amlodipine 10 MG TAB PO SCH (08:37)
[2020-11-27] MEDS: Aspirin Chewable 81 MG TAB PO SCH (08:37)
[2020-11-27] MEDS: predniSONE 20 MG TAB PO SCH (08:37)
[2020-11-27] MEDS: Clopidogrel Bisulfate 75 MG TAB PO SCH (08:37)
[2020-11-27] MEDS: Nicotine 21 MG PATCH TD SCH (08:38)
[2020-11-27 12:03] VITALS: TEMP 98.2
[2020-11-27 13:38] VITALS: BP 139/77
== END 2020-11-27 13:55 | disposition home or self-care (01) | DRG 190 ==
LOC: ERS 23:16 → ERHOLD 11-24 00:15 → 2NO 11-24 14:51
PROVIDERS: ADMIT Internal Medicine; ATTEND Family Medicine
DX: J44.1 Chronic obstructive pulmonary disease with (acute) exacerbation (principal); I21.A1 Myocardial infarction type 2; I10 Essential (primary) hypertension; Z79.02 Long term (current) use of antithrombotics/antiplatelets; Z87.891 Personal history of nicotine dependence; E78.5 Hyperlipidemia, unspecified; F19.10 Other psychoactive substance abuse, uncomplicated; R07.89 Other chest pain; I25.111 Atherosclerotic heart disease of native coronary artery with angina pectoris with documented spasm
CPT/HCPCS: 36415; 71045; 80048; 80061; 80306; 83036; 83735; 83880; 84443; 84484; 85014; 85018; 85025; 85049; 85379; 85610; 85730; 87635; 93005; 93306; 94640; 94760; 96374; J0360; J0456; J2920; J7050; J7512; J7620; U0003; U0005

== ENCOUNTER 2021-07-01 21:41 | Inpatient (IN) | payer MEDICARE, MEDICAID ==
[2021-07-02 00:20] VITALS: BMI 24.9
[2021-07-02 01:18] LABS: Troponin I 0.198 ng/mL (< 0.028)
[2021-07-02] MEDS ORDERED: Acetaminophen 650 MG Suppository PR PRN (03:51)
[2021-07-02] MEDS ORDERED: Ondansetron ODT 4 MG TAB PO PRN (03:51)
[2021-07-02] MEDS ORDERED: Ondansetron PF 4 MG/2 ML Vial IVP PRN (03:51)
[2021-07-02] MEDS ORDERED: Acetaminophen 325 MG TAB PO PRN (03:51)
[2021-07-02] MEDS ORDERED: hydrALAZINE 20 MG/ML VIAL SLOW IVP PRN ×2 (06:04→06:32)
[2021-07-02] MEDS ORDERED: Sodium Chloride 0.65% Nasal 44 ML BOT EA NARE PRN (08:20)
[2021-07-02] MEDS ORDERED: GUAIFENESIN SF SOLN 200 MG/10 ML UDCUP PO PRN (08:20)
[2021-07-02] MEDS ORDERED: Zolpidem Tartrate 5 MG TAB PO PRN (08:20)
[2021-07-02] MEDS ORDERED: Loperamide HCl 2 MG CAP PO PRN (08:20)
[2021-07-02] MEDS ORDERED: Hydrocerin (Eucerin) Cream 120 gm Jar TOP PRN (08:20)
[2021-07-02] MEDS ORDERED: Senokot S 8.6-50 MG TAB PO PRN (08:20)
[2021-07-02] MEDS ORDERED: Loratadine 10 MG TAB PO PRN (08:20)
[2021-07-02] MEDS ORDERED: Cepastat Lozenges 1 LOZ PO PRN (08:20)
[2021-07-02] MEDS ORDERED: Artificial Tear Sol 15 ML BOT EA EYE PRN (08:20)
[2021-07-02] MEDS ORDERED: Bisacodyl 5 MG TAB PO PRN (08:20)
[2021-07-02 08:37] LABS: #Basophils 0.1 thou/uL (0.0-0.2); #Eosinphils 0.4 thou/uL (0.0-0.7); #Lymphocytes 2.8 thou/uL (1.20-3.40); #Monocytes 0.6 thou/uL (0.11-0.59); %Basophils 1.1 % (0.0-1.0); %Eosinophils 6.4 % (0.0-10.0); %Lymphocytes 40.9 % (21.0-51.0); %Monocytes 8.3 % (0.0-10.0); %Neutrophils 43.3 % (42.0-75.0); Hemoglobin 15.5 g/dL (14.0-18.0); Mean Corpuscular Volume 88.1 fL (78.0-98.0); Mean Platelet Volume 7.1 fL (7.4-10.4); Platelet Count 253 thou/uL (130-400); RBC Distribution Width 12.7 % (11.5-14.5); Red Blood Cell (RBC) Count 5.16 mill/uL (4.70-6.10); White Blood Cell (WBC) Count 6.9 thou/uL (4.8-10.8)
[2021-07-02 08:57] LABS: Anion Gap 15 mmol/L (10-20); BUN (Urea Nitrogen) 15 mg/dL (8.4-25.7); Calc. Creatinine Clearance 44 mL/min (70-130); Calcium 9.1 mg/dL (7.8-10.44); Carbon Dioxide 28 mmol/L (23-31); Chloride 102 mmol/L (98-107); Glucose 146 mg/dL (80-115); Potassium 3.6 mmol/L (3.5-5.1); Sodium 141 mmol/L (136-145)
[2021-07-02] MEDS ORDERED: Lisinopril 10 MG TAB PO SCH (09:00)
[2021-07-02] MEDS ORDERED: FLU VACC QS2021-22(65YR UP)/PF 240 MCG/0.7 ML SYRINGE IM ONE (09:00)
[2021-07-02 09:03] LABS: Troponin I 0.194 ng/mL (< 0.028)
[2021-07-02] MEDS: Aspirin 325 MG TAB PO SCH (10:31)
[2021-07-02] MEDS ORDERED: Nitroglycerin 2% Ointment 1 INCH/1 GM Packet ONE (11:52)
[2021-07-02] MEDS ORDERED: Nitroglycerin 2% Ointment 1 INCH/1 GM Packet TOP SCH (12:30)
[2021-07-02] MEDS: Enoxaparin Sodium 40 MG/0.4 ML SYRINGE SC SCH (12:32)
[2021-07-02] MEDS: Lisinopril 10 MG TAB PO SCH (20:42)
[2021-07-02] MEDS: Atorvastatin Calcium 40 MG TAB PO SCH (20:42)
[2021-07-03 05:39] LABS: #Basophils 0.1 thou/uL (0.0-0.2); #Eosinphils 0.4 thou/uL (0.0-0.7); #Monocytes 0.7 thou/uL (0.11-0.59); #Neutrophils 4.5 thou/uL (1.40-6.50); %Basophils 0.9 % (0.0-1.0); %Eosinophils 4.9 % (0.0-10.0); %Lymphocytes 26.5 % (21.0-51.0); %Monocytes 8.9 % (0.0-10.0); %Neutrophils 58.8 % (42.0-75.0); Hemoglobin 14.2 g/dL (14.0-18.0); Mean Corpuscular HGB CONC 34.8 g/dL (32.0-36.0); Mean Corpuscular Hemoglobin 30.1 pg (27.0-31.0); Mean Corpuscular Volume 86.6 fL (78.0-98.0); Mean Platelet Volume 6.7 fL (7.4-10.4); Platelet Count 238 thou/uL (130-400); RBC Distribution Width 12.6 % (11.5-14.5); Red Blood Cell (RBC) Count 4.72 mill/uL (4.70-6.10); White Blood Cell (WBC) Count 7.7 thou/uL (4.8-10.8)
[2021-07-03 06:03] LABS: Anion Gap 10 mmol/L (10-20); BUN (Urea Nitrogen) 18 mg/dL (8.4-25.7); Calc. Creatinine Clearance 54 mL/min (70-130); Calcium 8.9 mg/dL (7.8-10.44); Carbon Dioxide 30 mmol/L (23-31); Chloride 104 mmol/L (98-107); Cholesterol 142 mg/dl (< 200 Desired); Glucose 85 mg/dL (80-115); HDL Cholesterol 47 mg/dL (>60 Neg Risk); LDL Cholesterol, Calculated 81 mg/dL; Potassium 3.5 mmol/L (3.5-5.1); Sodium 140 mmol/L (136-145); Triglycerides 68 mg/dL (Less than 150)
[2021-07-03] MEDS: Aspirin 325 MG TAB PO SCH (09:11)
[2021-07-03] MEDS: Enoxaparin Sodium 40 MG/0.4 ML SYRINGE SC SCH (09:12)
[2021-07-03] MEDS: Lisinopril 10 MG TAB PO SCH ×2 (09:12→19:54)
[2021-07-03] MEDS: Atorvastatin Calcium 40 MG TAB PO SCH (19:54)
[2021-07-04 05:37] LABS: #Basophils 0.1 thou/uL (0.0-0.2); #Eosinphils 0.3 thou/uL (0.0-0.7); #Lymphocytes 2.4 thou/uL (1.20-3.40); #Monocytes 0.8 thou/uL (0.11-0.59); #Neutrophils 2.8 thou/uL (1.40-6.50); %Eosinophils 5.3 % (0.0-10.0); %Lymphocytes 37.9 % (21.0-51.0); %Monocytes 12.6 % (0.0-10.0); %Neutrophils 43.2 % (42.0-75.0); Hemoglobin 13.8 g/dL (14.0-18.0); Mean Corpuscular HGB CONC 33.3 g/dL (32.0-36.0); Mean Corpuscular Hemoglobin 29.3 pg (27.0-31.0); Mean Corpuscular Volume 88.1 fL (78.0-98.0); Mean Platelet Volume 6.9 fL (7.4-10.4); Platelet Count 249 thou/uL (130-400); RBC Distribution Width 12.5 % (11.5-14.5); White Blood Cell (WBC) Count 6.4 thou/uL (4.8-10.8)
[2021-07-04 06:00] LABS: Anion Gap 10 mmol/L (10-20); BUN (Urea Nitrogen) 14 mg/dL (8.4-25.7); Calc. Creatinine Clearance 53 mL/min (70-130); Calcium 9.1 mg/dL (7.8-10.44); Carbon Dioxide 28 mmol/L (23-31); Chloride 105 mmol/L (98-107); Glucose 81 mg/dL (80-115); Magnesium 2.1 mg/dL (1.6-2.6); Potassium 3.7 mmol/L (3.5-5.1); Sodium 139 mmol/L (136-145)
[2021-07-04 08:36] VITALS: TEMP 97.7
[2021-07-04] MEDS: Lisinopril 10 MG TAB PO SCH (09:37)
[2021-07-04] MEDS: Enoxaparin Sodium 40 MG/0.4 ML SYRINGE SC SCH ×2 (09:37→09:40)
[2021-07-04] MEDS: Aspirin 325 MG TAB PO SCH (09:37)
[2021-07-04 15:10] VITALS: BP 177/90
[2021-07-04] MEDS ORDERED: Lisinopril 20 MG TAB PO SCH (21:00)
== END 2021-07-04 16:40 | disposition home or self-care (01) | DRG 280 ==
LOC: 2SW 21:41 → OBSVTOIN 07-03 12:48
PROVIDERS: ADMIT Student in an Organized Health Care Education/Training Program; ATTEND Internal Medicine
DX: I11.0 Hypertensive heart disease with heart failure (principal); I50.33 Acute on chronic diastolic (congestive) heart failure; I21.4 Non-ST elevation (NSTEMI) myocardial infarction; I16.9 Hypertensive crisis, unspecified; Z20.822 Contact with and (suspected) exposure to COVID-19; J44.9 Chronic obstructive pulmonary disease, unspecified; I25.10 Atherosclerotic heart disease of native coronary artery without angina pectoris; E78.5 Hyperlipidemia, unspecified; E11.65 Type 2 diabetes mellitus with hyperglycemia; F17.210 Nicotine dependence, cigarettes, uncomplicated; Z98.890 Other specified postprocedural states; Z79.51 Long term (current) use of inhaled steroids; Z91.14 Patient's other noncompliance with medication regimen
CPT/HCPCS: 36415; 36416; 80048; 80061; 83735; 84484; 85025; 90471; 90662; 90732; 93005; 93010; 96372; G0008; G0009; G0378; J1650